=== PATIENT | male | born 1975 | race Asian ===

== ENCOUNTER 2019-12-19 14:24 | Outpatient (REF) | payer OTHER, SELFPAY ==
[2019-12-19 15:41] LABS: Calcium 8.7 mg/dL (8.4-10.2); Magnesium 2.6 mg/dL (1.6-2.6); Uric Acid 9.4 mg/dL (3.4-7.0)
== END 2019-12-19 14:25 | disposition home or self-care (01) ==
LOC: HO.LAB 14:24
DX: M25.529 Pain in unspecified elbow (principal); M25.512 Pain in left shoulder; M25.511 Pain in right shoulder
CPT/HCPCS: 82310; 83735; 84550